=== PATIENT | male | born 1970 | race Caucasian/White ===

== ENCOUNTER 2017-10-14 13:25 | Emergency (ER) | payer OTHER ==
[~2017-10-14] VITALS: Ht 182.9 cm; Wt 85.4 kg
[2017-10-14] MEDS ORDERED: sucralfate 1gm/10ml UD suspension PO STA (14:16)
[2017-10-14 14:17] LABS: BASOPHILS % (AUTO) 0.2 % (0-1); EOSINOPHILS # (AUTO) 0.1 X10'3 (0-0.9); EOSINOPHILS % (AUTO) 1.5 % (0-6); HEMATOCRIT 44.3 % (42.0-52.0); HEMOGLOBIN 15.5 g/dl (14.0-17.9); LYMPHOCYTES # (AUTO) 1.2 X10'3 (1.1-4.8); LYMPHOCYTES % (AUTO) 12.4 % (21-51); MEAN CORPUSCULAR HEMOGLOBIN 32.1 PG (27.0-31.0); MEAN CORPUSCULAR HGB CONC 35.1 % (33.0-36.5); MEAN CORPUSCULAR VOLUME 91.4 FL (78-98); MONOCYTES % (AUTO) 10.5 % (2-12); NEUTROPHILS # (AUTO) 7.4 X10'3 (1.8-7.7); NEUTROPHILS % (AUTO) 75.4 % (42-75); PLATELET COUNT 231 X10'3 (140-440); RED BLOOD COUNT 4.84 X10'6 (4.70-6.10); RED CELL DISTRIBUTION WIDTH 12.3 % (11.5-14.5); WHITE BLOOD COUNT 9.7 X10'3 (4.5-11.0)
[2017-10-14 14:18] LABS: CLARITY,URINE CLEAR (Clear); GLUCOSE, URINE NEGATIVE (Neg); KETONES,URINE NEGATIVE (Neg); LEUKOCYTE ESTERASE ,URINE NEGATIVE (Neg); NITRITES, URINE NEGATIVE (Neg); OCCULT BLOOD,URINE NEGATIVE (Neg); PH,URINE 7.5 (4.8-8.0); PROTEIN,URINE NEGATIVE (Neg)
[2017-10-14] MEDS ORDERED: mag hydrox/Alum hydrox/simeth 30ml oral suspension PO ONE (14:20)
[2017-10-14] MEDS ORDERED: LIDOcaine Viscous 15ml cup PO ONE (14:20)
[2017-10-14 14:23] LABS: UA COLLECTION TYPE CLN CATCH MIDSTREAM
[2017-10-14 14:24] LABS: COLOR,URINE DARK YELLOW (Yellow)
[2017-10-14 14:26] LABS: PROTHROMBIN TIME 10.3 SECONDS (9.0-12.0)
[2017-10-14 14:32] LABS: ALANINE AMINOTRANSFERASE 635 U/L (12-78); ALBUMIN 3.9 G/DL (3.4-5.0); ALBUMIN/GLOBULIN RATIO 1.1 (1.1-1.5); ALKALINE PHOSPHATASE 125 IU/L (46-116); AMYLASE 35 U/L (25-115); ANION GAP 7 (8-16); ASPARTATE AMINO TRANSFERASE 469 U/L (10-37); BILIRUBIN,TOTAL 3.5 MG/DL (0.1-1.0); BLOOD UREA NITROGEN 20 MG/DL (7-18); BUN/CREATININE RATIO 16.3 (5.4-32.0); CHLORIDE 100 MMOL/L (99-107); CREATININE 1.23 MG/DL (0.60-1.10); GLUCOSE 111 MG/DL (70-104); LIPASE 148 U/L (73-393); POTASSIUM 4.1 MMOL/L (3.5-5.1); SODIUM 137 MMOL/L (135-145); TOTAL PROTEIN 7.6 G/DL (6.4-8.2); eGFR 63 ML/MIN
[2017-10-14 15:01] VITALS: BP 165/97
[2017-10-14] MEDS ORDERED: SUCR1TAB34 PO (15:03)
== END 2017-10-14 15:22 | disposition home or self-care (01) ==
LOC: ER 13:25
DX: R10.10 Upper abdominal pain, unspecified (principal); R14.2 Eructation; Z90.49 Acquired absence of other specified parts of digestive tract
CPT/HCPCS: 36415; 80053; 81003; 82150; 83690; 85025; 85610; 99284

== ENCOUNTER 2017-12-18 22:01 | Emergency (ER) | payer OTHER ==
[~2017-12-18] VITALS: Ht 182.9 cm; Wt 84.1 kg
[~2017-12-18 22:01] MED LIST: SUCR1TAB34 PO
[2017-12-18] MEDS ORDERED: morphine 4 MG/ML inj SYRINge IV ONE (22:15)
[2017-12-18] MEDS ORDERED: ondansetron/PF 4mg/2ml inj IV ONE (22:20)
[2017-12-18] MEDS ORDERED: iohexol 300mg/ml 100ml inj. ONE (22:26)
[2017-12-18 22:50] LABS: BASOPHILS % (AUTO) 0.3 % (0-1); EOSINOPHILS % (AUTO) 0.1 % (0-6); HEMATOCRIT 41.4 % (42.0-52.0); HEMOGLOBIN 14.6 g/dl (14.0-17.9); LYMPHOCYTES # (AUTO) 0.9 X10'3 (1.1-4.8); LYMPHOCYTES % (AUTO) 8.1 % (21-51); MEAN CORPUSCULAR HEMOGLOBIN 32.4 PG (27.0-31.0); MEAN CORPUSCULAR HGB CONC 35.2 % (33.0-36.5); MEAN CORPUSCULAR VOLUME 91.9 FL (78-98); MEAN PLATELET VOLUME 7.6 FL (7.4-10.4); MONOCYTES # (AUTO) 0.8 X10'3 (0-0.9); NEUTROPHILS # (AUTO) 9.5 X10'3 (1.8-7.7); NEUTROPHILS % (AUTO) 84.5 % (42-75); PLATELET COUNT 224 X10'3 (140-440); WHITE BLOOD COUNT 11.2 X10'3 (4.5-11.0)
[2017-12-18 23:01] LABS: PARTIAL THROMBOPLASTIN TIME 23 SECONDS (22-32); PROTHROMBIN TIME 10.6 SECONDS (9.0-12.0)
[2017-12-18 23:04] LABS: ALANINE AMINOTRANSFERASE 117 U/L (12-78); ALBUMIN 3.9 G/DL (3.4-5.0); ALBUMIN/GLOBULIN RATIO 1.3 (1.1-1.5); ALKALINE PHOSPHATASE 69 IU/L (46-116); ANION GAP 12 (8-16); ASPARTATE AMINO TRANSFERASE 98 U/L (10-37); BILIRUBIN,TOTAL 0.5 MG/DL (0.1-1.0); BLOOD UREA NITROGEN 23 MG/DL (7-18); BUN/CREATININE RATIO 23.2 (5.4-32.0); CALCIUM 8.2 MG/DL (8.5-10.1); CHLORIDE 104 MMOL/L (99-107); CREATININE 0.99 MG/DL (0.60-1.10); GLUCOSE 140 MG/DL (70-104); POTASSIUM 3.6 MMOL/L (3.5-5.1); SODIUM 140 MMOL/L (135-145); TOTAL CARBON DIOXIDE 23.8 MMOL/L (24-32); eGFR 81 ML/MIN
[2017-12-18 23:14] LABS: CKMB RELATIVE INDEX 0.9 RATIO (0-2.5); CREATINE KINASE 990 U/L (39-308); ETHANOL 0.026 GM/DL (0.0-0.010); LIPASE 146 U/L (73-393)
[2017-12-18 23:19] LABS: CLARITY,URINE CLEAR (Clear); COLOR,URINE YELLOW (Yellow); GLUCOSE, URINE NEGATIVE (Neg); KETONES,URINE NEGATIVE (Neg); LEUKOCYTE ESTERASE ,URINE NEGATIVE (Neg); NITRITES, URINE NEGATIVE (Neg); OCCULT BLOOD,URINE MODERATE (Neg); PROTEIN,URINE 30 mg/dl (Neg); UROBILINOGEN,URINE 0.2 E.U/dL (0.2-1.0)
[2017-12-18 23:24] LABS: UA COLLECTION TYPE VOIDED
[2017-12-18 23:26] LABS: BACTERIA,URINE FEW /HPF (Neg); MUCUS STRANDS MANY /LPF (Neg); SQUAMOUS EPITHELIAL CELL,UR MODERATE /LPF (FEW)
[2017-12-18 23:31] LABS: URINE AMPHETAMINE SCREEN NEGATIVE (Neg); URINE BARBITUATE SCREEN NEGATIVE (Neg); URINE BENZODIAZEPINES SCREEN NEGATIVE (Neg); URINE CANNABINOID SCREEN NEGATIVE (Neg); URINE COCAINE SCREEN NEGATIVE (Neg); URINE METHADONE SCREEN NEGATIVE (Neg); URINE OPIATE SCREEN POSITIVE (Neg); URINE PHENCYCLIDINE SCREEN NEGATIVE (Neg)
[2017-12-18] MEDS ORDERED: HYDROmorphone 1 mg/ml syringe IV ONE (23:50)
[2017-12-19] MEDS ORDERED: ondansetron/PF 4mg/2ml inj IV ONE (00:05)
[2017-12-19 00:56] VITALS: BP 126/86
== END 2017-12-19 00:57 | disposition short-term general hospital (02) ==
LOC: ER 22:01
DX: S22.41XA Multiple fractures of ribs, right side, initial encounter for closed fracture (principal); S22.089A Unspecified fracture of T11-T12 vertebra, initial encounter for closed fracture; S32.019A Unspecified fracture of first lumbar vertebra, initial encounter for closed fracture; S32.039A Unspecified fracture of third lumbar vertebra, initial encounter for closed fracture; S36.113A Laceration of liver, unspecified degree, initial encounter; S27.321A Contusion of lung, unilateral, initial encounter; Z90.49 Acquired absence of other specified parts of digestive tract; Z79.899 Other long term (current) drug therapy; V29.88XA Motorcycle rider (driver) (passenger) injured in other specified transport accidents, initial encounter; Y93.55 Activity, bike riding; Y92.413 State road as the place of occurrence of the external cause; Y99.9 Unspecified external cause status
CPT/HCPCS: 36415; 70450; 71045; 71260; 72125; 72128; 72131; 73552; 73560; 74177; 80053; 80305; 80320; 81001; 82550; 82553; 83690; 85025; 85610; 85730; 86885; 86900; 86901; 87088; 93005; 96374; 96375; 96376; 99291; 99292; J1170; J2270; J2405; J7030; Q9967

== ENCOUNTER 2023-08-14 15:43 | Emergency (ER) | payer OTHER ==
[~2023-08-14] VITALS: Ht 182.9 cm; Wt 84.1 kg
[2023-08-14] MEDS: ringers solution, lacted 1,000 ML IV ONE (18:06)
[2023-08-14] MEDS: diphenhydrAMINE 50 mg/ml inj IV ONE (18:23)
[2023-08-14] MEDS: magnesium 2GM in 50ml NS 50 ML IV ONE (18:23)
[2023-08-14] MEDS: metoclopramide 5 mg/ml inj IV ONE (18:23)
[2023-08-14] MEDS: ketorolac trometh. 30mg/ml inj. IV ONE (18:28)
[2023-08-14] MEDS ORDERED: iohexol 350MG/ML 100ml bottle IV ONE (19:01)
[2023-08-14 19:14] VITALS: TEMP 98.8
[2023-08-14 19:42] LABS: BASOPHILS # (AUTO) 0.1 X10'3 (0-0.2); BASOPHILS % (AUTO) 0.6 % (0-1); EOSINOPHILS # (AUTO) 0.1 X10'3 (0-0.9); HEMATOCRIT 39.2 % (42.0-52.0); HEMOGLOBIN 13.7 g/dl (14.0-17.9); LYMPHOCYTES # (AUTO) 1.2 X10'3 (1.1-4.8); LYMPHOCYTES % (AUTO) 13.1 % (21-51); MEAN CORPUSCULAR HEMOGLOBIN 32.3 PG (27.0-31.0); MEAN CORPUSCULAR HGB CONC 34.9 g/dL (33.0-36.5); MEAN CORPUSCULAR VOLUME 92.4 FL (78-98); MEAN PLATELET VOLUME 7.2 FL (7.4-10.4); MONOCYTES # (AUTO) 0.5 X10'3 (0-0.9); NEUTROPHILS # (AUTO) 7.1 X10'3 (1.8-7.7); NEUTROPHILS % (AUTO) 79.3 % (42-75); PLATELET COUNT 207 X10'3 (140-440); RED BLOOD COUNT 4.24 X10'6 (4.70-6.10); RED CELL DISTRIBUTION WIDTH 12.7 % (11.5-14.5)
[2023-08-14 19:55] LABS: ALANINE AMINOTRANSFERASE 45 U/L (12-78); ALBUMIN 3.3 G/DL (3.4-5.0); ALBUMIN/GLOBULIN RATIO 1.1 (1.1-1.5); ALKALINE PHOSPHATASE 61 IU/L (46-116); ANION GAP 6 (8-16); ASPARTATE AMINO TRANSFERASE 16 U/L (10-37); BILIRUBIN,TOTAL 0.7 MG/DL (0.1-1.0); BLOOD UREA NITROGEN 20 MG/DL (7-18); BUN/CREATININE RATIO 23.3 (10.0-20.0); CALCIUM 8.1 MG/DL (8.5-10.1); CHLORIDE 102 MMOL/L (99-107); CREATININE 0.86 MG/DL (0.60-1.10); GLUCOSE 113 MG/DL (70-104); POTASSIUM 3.6 MMOL/L (3.5-5.1); SODIUM 135 MMOL/L (135-145); TOTAL CARBON DIOXIDE 27.1 MMOL/L (24-32); TOTAL PROTEIN 6.4 G/DL (6.4-8.2); eCRCL 109 ML/MIN; eGFR > 90 ML/MIN
[2023-08-14] MEDS ORDERED: proCHLORperazine 10 MG/2 ml inj IM ONE (20:55)
[2023-08-14] MEDS: HYDROmorphone 1 mg/ml syringe IV ONE (21:53)
[2023-08-14] MEDS ORDERED: HYDR-3965 PO ×2 (22:03→22:06)
[2023-08-14 22:17] VITALS: BP 106/55; PULSE 62; RESP 16; O2SAT 95
== END 2023-08-14 22:19 | disposition home or self-care (01) ==
LOC: ER 15:43
DX: R51.9 Headache, unspecified (principal); Z79.899 Other long term (current) drug therapy; Z98.890 Other specified postprocedural states
CPT/HCPCS: 36415; 70450; 70496; 70498; 80053; 85025; 96365; 96366; 96375; 99285; J1170; J1200; J1885; J2765; J3475; J3490; J7120; Q9967